=== PATIENT | male | born 1965 | race Caucasian/White ===

== ENCOUNTER 2019-01-06 16:25 | Emergency (ER) | payer OTHER ==
[~2019-01-06] VITALS: Ht 182.9 cm; Wt 107.0 kg
[~2019-01-06 16:25] MED LIST: CLEOCIN HCL300 MG PO; IBUPROFEN 800800 M1 PO; KEFLEX500 MG PO; LISINOPRIL10 MG PO; NORCO 5-325 TA1 EAC1 PO; NORCO 5-325 TA1 EACH PO; PREDNISONE 20 M20 MG PO; PRINZIDE 10-121 EACH; ZESTORETIC 20-1 EAC3 PO
[2019-01-06 16:35] VITALS: BP 182/95
[2019-01-06] MEDS ORDERED: BACTRIM DS TAB1 EACH PO (16:42)
[2019-01-06] MEDS ORDERED: NORVASC 2.5 MG2.5 M1 PO (16:45)
[2019-01-07] MEDS ORDERED: BACTRIM DS TAB1 EACH PO (09:16)
== END 2019-01-06 16:51 | disposition home or self-care (01) ==
LOC: M.ERS 16:25
DX: L53.9 Erythematous condition, unspecified (principal); Z48.00 Encounter for change or removal of nonsurgical wound dressing; I10 Essential (primary) hypertension; M10.9 Gout, unspecified

== ENCOUNTER 2019-07-20 01:06 | Emergency (ER) | payer OTHER ==
[~2019-07-20] VITALS: Ht 182.9 cm; Wt 108.9 kg
[~2019-07-20 01:06] MED LIST changes: +BACTRIM DS TAB1 EACH PO; +NORVASC 2.5 MG2.5 M1 PO
[2019-07-20 01:37] LABS: URINE BILIRUBIN NEGATIVE (Negative); URINE BLOOD 3+ (Negative); URINE CLARITY SL CLOUDY; URINE COLOR YELLOW; URINE GLUCOSE-RANDOM NEGATIVE (Negative); URINE KETONES NEGATIVE (Negative); URINE LEUKOCYTES-REFLEX NEGATIVE (Negative); URINE NITRITE-REFLEX NEGATIVE (Negative); URINE PROTEIN NEGATIVE (Negative); URINE SPECIFIC GRAVITY 1.025 (1.005-1.030); URINE UROBILINOGEN 0.2 E.U./dl (0.2-1.0)
[2019-07-20 01:45] LABS: BACTERIA-REFLEX 1-9 Few /HPF (None Seen); CASTS None Seen /LPF (None Seen); CRYSTALS None Seen /LPF (None Seen); MUCUS None Seen strn/LPF (None Seen); SQUAMOUS 0-3 Few /LPF (0-3); URINE RBC >20 Many /HPF (0-2); URINE WBC-REFLEX None Seen /HPF (0-5)
[2019-07-20 02:59] LABS: ABSOLUTE EOSINOPHILS 0.1 thou/uL (0.0-0.7); ABSOLUTE LYMPHOCYTES 1.7 thou/uL (0.8-5.3); ABSOLUTE MONOCYTES 0.4 thou/uL (0.0-1.2); ABSOLUTE NEUTROPHILS 2.9 thou/uL (1.6-8.1); BASOPHILS 0.3 %; EOSINOPHILS 1.1 %; HEMATOCRIT 41.4 % (42.0-52.0); HEMOGLOBIN 14.6 gm/dL (14.0-18.0); LYMPHOCYTES 33.4 %; MCH 30.1 pg (26.0-34.0); MCHC 35.2 g/dL (28.0-37.0); MCV 85.5 fL (80.0-100.0); MONOCYTES 8.5 %; MPV 8.4 fl. (7.2-11.1); NUCLEATED RBCS 0 /100WBC; PLATELET COUNT* 133 thou/uL (150-400); POLYS 56.7 %; RBC 4.85 mil/uL (4.50-6.00); RDW-CV 13.7 % (10.5-14.5); WBC 5.1 thou/uL (4.0-11.0)
[2019-07-20 03:04] LABS: CALCIUM 8.3 mg/dL (8.5-10.1); CREATININE 1.1 mg/dL (0.6-1.3); POTASSIUM 3.7 mmol/L (3.5-5.1)
[2019-07-20 06:01] VITALS: BP 168/96
== END 2019-07-20 06:02 | disposition home or self-care (01) ==
LOC: M.ERS 01:06
PROVIDERS: Emergency Medicine
DX: R31.9 Hematuria, unspecified (principal); I10 Essential (primary) hypertension; M10.9 Gout, unspecified

== ENCOUNTER 2020-05-11 09:17 | Emergency (ER) | payer OTHER ==
[~2020-05-11] VITALS: Ht 182.9 cm; Wt 108.9 kg
[2020-05-11] MEDS ORDERED: LIPITOR 20 MG T20 M1 PO (09:35)
[2020-05-11] MEDS ORDERED: BACLOFEN 10MG T10 MG PO (09:36)
[2020-05-11] MEDS ORDERED: LEXAPRO 10 MG T10 M2 PO ×2 (09:36→09:38)
[2020-05-11] MEDS ORDERED: ASA81BEC PO (09:36)
[2020-05-11] MEDS ORDERED: PLAVIX 75 MG TA75 MG PO (09:36)
[2020-05-11] MEDS ORDERED: LISINOPRIL20 MG PO ×2 (09:36→09:38)
[2020-05-11 09:56] VITALS: BP 145/62
== END 2020-05-11 09:56 | disposition home or self-care (01) ==
LOC: M.ERS 09:17
DX: I10 Essential (primary) hypertension (principal); Z76.0 Encounter for issue of repeat prescription; Z86.73 Personal history of transient ischemic attack (TIA), and cerebral infarction without residual deficits

== ENCOUNTER 2020-11-07 16:05 | Inpatient (IN) | payer OTHER ==
[~2020-11-07] VITALS: Ht 182.9 cm; Wt 112.3 kg
[~2020-11-07 16:05] MED LIST changes: +ASA81BEC PO; +BACLOFEN 10MG T10 MG PO; +LEXAPRO 10 MG T10 M2 PO; +LIPITOR 20 MG T20 M1 PO; +LISINOPRIL20 MG PO; +PLAVIX 75 MG TA75 MG PO
[2020-11-07 16:08] VITALS: BP 137/82
[2020-11-07] MEDS ORDERED: LISINOPRIL20 MG PO (16:15)
[2020-11-07] MEDS ORDERED: PLAVIX 75 MG TA75 MG PO (16:16)
[2020-11-07] MEDS ORDERED: CHILDREN'S ASPI81 M1 PO (16:16)
[2020-11-07] MEDS ORDERED: DECARA625 MCG PO (16:17)
[2020-11-07] MEDS ORDERED: LIPITOR 40 MG T40 M1 PO (16:17)
[2020-11-07 16:27] LABS: ABSOLUTE EOSINOPHILS 0.1 thou/uL (0.0-0.7); ABSOLUTE LYMPHOCYTES 1.4 thou/uL (0.8-5.3); ABSOLUTE MONOCYTES 0.3 thou/uL (0.0-1.2); ABSOLUTE NEUTROPHILS 3.1 thou/uL (1.6-8.1); BASOPHILS 0.3 %; EOSINOPHILS 1.3 %; HEMATOCRIT 43.1 % (42.0-52.0); HEMOGLOBIN 14.7 gm/dL (14.0-18.0); MCH 29.8 pg (26.0-34.0); MCHC 34.1 g/dL (28.0-37.0); MCV 87.6 fL (80.0-100.0); MONOCYTES 6.5 %; MPV 7.7 fl. (7.2-11.1); NUCLEATED RBCS 0 /100WBC; PLATELET COUNT* 131 thou/uL (150-400); POLYS 63.9 %; RBC 4.92 mil/uL (4.50-6.00); RDW-CV 12.8 % (10.5-14.5); WBC 4.9 thou/uL (4.0-11.0)
[2020-11-07 16:33] LABS: CALCIUM 8.8 mg/dL (8.5-10.1); CREATININE 1.2 mg/dL (0.6-1.3); POTASSIUM 4.3 mmol/L (3.5-5.1)
[2020-11-07 21:27] VITALS: BP 133/76
[2020-11-08 01:23] VITALS: BP 146/77
[2020-11-08 02:01] VITALS: BP 137/32
[2020-11-08 08:10] VITALS: BP 126/74
--- NOTE | 2020-11-08 11:34 | EKG ---
[place] [address] ELECTROCARDIOGRAM REPORT Name: TRACEEABEL R Room: [address] ADM IN .R.#: [id number] Admission: 11/07/20 Attend Phys: Ange Dan, Discharge: Date of : 63 Date of Service: 11/07/20 1720 Report #: [id number] THIS REPORT FOR: //name// [facility] ED Test Date: 2020-11-07 Test Time: 17:20:13 Pat Name: ABEL EASLEY Department: Room: [facility] Gender: M Engraving Operator: SHAJI : 1965 Requested By: Sarah Mccullough Order Number: [id number] MD: Mika Vallejo Measurements Intervals [place] Rate: 70 P: 46 NM: 181 QRS: 4 QRSD: 111 T: 25 QT: 384 QTc: 415 Interpretive Statements Sinus rhythm Abnormal R-wave progression, early transition Compared to ECG 01/07/2012 19:03:25 No significant changes Electronically Signed On 11-08-2020 11:33:46 CDT by Mika Vallejo [email or web address] <ELECTRONICALLY SIGNED> By: Julian Vallejo MD, [facility] 11/08/20 1133 [id number] Julian Vallejo MD, [facility] /EPI
--- NOTE | 2020-11-08 18:41 | NUR ---
PATIENT HAS REMAINED A&OX4, PLEASANT AND COOPERATIVE WITH CARES THIS SHIFT. MEDICATIONS ADMINISTERED ORDERED. PATIENT TO BE NPO AFTER MIDNIGHT TONIGHT FOR SURGERY ON LEFT HIP ON 11/09. PATIENT CURRENTLY ON BEDREST AND Q2T COMPLETED. PATIENT HAS LEFT SIDED PARALYSIS D/T PREVIOUS STROKE AND C/O MUSCLE SPASMS ESPECIALLY IN LLE. PATIENT HAS C/O LLE PAIN, REQUIRING PRN PAIN MEDICATION FREQUENTLY THIS SHIFT. CALL LIGHT AND FREQUENTLY USED ITEMS WITHIN REACH.
[2020-11-08 19:48] VITALS: BP 136/79
[2020-11-08 20:40] VITALS: BP 146/86
--- NOTE | 2020-11-09 06:55 | NUR ---
Alert and oriented x 4. Vitals stable, O2 stable. He had pain med x 3. He has had nothing by mouth since midnight. L side is flaccid from previous CVA.
--- NOTE | 2020-11-09 07:10 | NUR ---
CHANGE OF SHIFT REPORT GIVEN PATIENT SEEN AT BEDSIDE, IN BED RESTING ASSUMED PATIENT CARE
[2020-11-09 08:00] VITALS: BP 140/85
--- NOTE | 2020-11-09 14:30 | NUR ---
patient taken to surgery via bed by pacu nurse at bedside
--- NOTE | 2020-11-09 18:05 | NUR ---
POST OP L HEMIARTHOPLASTY PATIENT BACK TO ROOM VIA BED AWAKE AND ALERT AT BEDSIDE VS-120/75 89% 3L NC 101 14 98.6 ORAL PATIENT DENIES PAIN AT THIS TIME CALL LIGHT IN PLACE
[2020-11-09 20:05] VITALS: BP 126/73
[2020-11-10 04:00] VITALS: BP 123/64
[2020-11-10 04:35] LABS: CALCIUM 8.6 mg/dL (8.5-10.1); CREATININE 1.3 mg/dL (0.6-1.3); POTASSIUM 4.9 mmol/L (3.5-5.1)
[2020-11-10 04:44] LABS: HEMATOCRIT 39.1 % (42.0-52.0); HEMOGLOBIN 13.5 gm/dL (14.0-18.0); MCHC 34.7 g/dL (28.0-37.0); MCV 86.5 fL (80.0-100.0); NUCLEATED RBCS 0 /100WBC; PLATELET COUNT* 146 thou/uL (150-400); RBC 4.52 mil/uL (4.50-6.00); RDW-CV 12.5 % (10.5-14.5)
[2020-11-10 05:21] LABS: ABSOLUTE LYMPHOCYTES 0.8 thou/uL (0.8-5.3); ABSOLUTE MONOCYTES 0.8 thou/uL (0.0-1.2); ABSOLUTE NEUTROPHILS 8.4 thou/uL (1.6-8.1); PLATELET ESTIMATE DECREASED
--- NOTE | 2020-11-10 06:01 | NUR ---
PATIENT HAS REMAINED ALERT AND ORIENTED X 4 THROUGHOUT THE SHIFT AND RESTING QUIETLY ON HOURLY ROUNDS. VITAL SIGNS STABLE OVERNIGHT ON O2 AT 3L/MIN AND CONTINUOUS CAPNOGRAPHY. DRESSING LEFT HIP CLEAN AND DRY. DONG HOSE AND SCD'S ON BILATERAL LOWER EXTREMITIES. ICE PACK TO LEFT HIP AND ORAL PAIN MEDICATION PROVIDED FOR PAIN TO GOOD EFFECT. IVF'S AND MEDS PER ORDER. FAMILY SENT UP DINNER WHICH PATIENT TOLERATED WELL WITHOUT NAUSEA. ADEQUATE VOIDS PER URINAL. REPOSITIONED SEVERAL TIMES FOR COMFORT. FALL PRECAUTIONS IN PLACE. CONTINUE TO MONITOR.
[2020-11-10 08:10] VITALS: BP 119/68
--- NOTE | 2020-11-10 15:55 | NUR ---
Pt is A&O. Resides at home with . Independent. Pt uses a cane for mobility. Hx of HH. Therapies to see today. Recommending ARU, ARU consulted. Plan ARU at [place].
[2020-11-10 16:00] VITALS: BP 115/67
--- NOTE | 2020-11-10 18:55 | NUR ---
NO ACUTE CHANGES THROUGHOUT SHIFT. REFER TO CHARTING. PT WORKED WITH PHYSICAL THERAPY AND UP TO CHAIR FOR MEALS TODAY-TOLERATED FAIR. PRN NORCO GIVEN PER EMAR FOR PAIN. 50%WB LLE. PT TITRATED TO RA SAT MID 90'S. DENIES ANY SHORTNESS OF BREATH. MED SURG STATUS. REHAB CONSULT IN PLACE. AM ASSESSMENT CHARTED. MEDICATIONS PER MAR. HOURLY ROUNDING OBSERVED. BED IN LOW POSITION. CALL LIGHT WITHIN REACH. WILL CONTINUE PLAN OF CARE.
[2020-11-10 19:45] VITALS: BP 116/74
[2020-11-11 04:50] LABS: HEMATOCRIT 35.6 % (42.0-52.0); HEMOGLOBIN 12.4 gm/dL (14.0-18.0); MCH 30.2 pg (26.0-34.0); MCHC 34.8 g/dL (28.0-37.0); MCV 86.8 fL (80.0-100.0); MPV 7.9 fl. (7.2-11.1); RBC 4.1 mil/uL (4.50-6.00); RDW-CV 12.7 % (10.5-14.5); WBC 7.4 thou/uL (4.0-11.0)
--- NOTE | 2020-11-11 04:50 | NUR ---
PT A&O X 4. ON RA. PAIN MANAGED WITH NORCO. PT USES URINAL TO VOID. DRESSING TO LT HIP INTACT. ICE PACKS GIVEN PER PT REQUEST. CALL LIGHT WITHIN REACH. WILL CONTINUE TO MONITOR.
[2020-11-11 05:05] LABS: CALCIUM 8.2 mg/dL (8.5-10.1); POTASSIUM 4.2 mmol/L (3.5-5.1)
[2020-11-11 08:09] VITALS: BP 123/65
--- NOTE | 2020-11-11 08:55 | CON ---
[address] [address] CONSULTATION Name: ABEL EASLEY Room: [address] IN M.R.#: [id number] Admission: 11/07/20 Attend Phys: Ange Dan MD Discharge: Date of : 63 Report #: [id number] THIS REPORT FOR: cc: Carlos Barron MD, Leonard A. MD Greiner, Robert F. II DO ~ DATE OF CONSULTATION: 11/09/2020 ORTHOPEDIC CONSULTATION HISTORY OF PRESENT ILLNESS: The patient is a 55-year-old male who presented to the emergency room with left hip pain following a fall. The patient has had previous stroke, did slip on concrete ____. He does have left-sided upper extremity and lower extremity weakness due to a stroke in last December. Pain is primarily at the level of the greater trochanter, dull, constant, right-sided, 9/10, pain with flexion and extension. There is a small bruise at the point of impact, radiates into the groin and low back. The patient denies any numbness or tingling throughout the lower extremity and we are consulted for further evaluation. MEDICAL PROBLEMS: Previous cellulitis of left leg; femoral neck fracture, left hip; hematuria; insect bite, left leg; and right foot pain. ALLERGIES: No known. MEDICATIONS: Listed in H and P. PAST MEDICAL HISTORY: Hypertension, gout and stroke. PAST SURGICAL HISTORY: None. FAMILY HISTORY: Reviewed and no pertinent family history. SOCIAL HISTORY: The patient denies any tobacco or illicit drug use, does occasionally drink alcohol. REVIEW OF SYSTEMS: The patient had a 12-system review of systems which were negative except for pertinent positives in HPI. PHYSICAL EXAMINATION: GENERAL: The patient is alert, cooperative, oriented, appropriate affect, in mild distress. HEENT: Atraumatic. PERRLA, EOMI. Moist mucous membranes. NECK: Supple, no JVD, no thyromegaly. CARDIOVASCULAR: Regular rate and rhythm. [place] [address] CONSULTATION Name: TRACEEABEL R Room: [address] IN [facility].#: [id number] Admission: 11/07/20 Attend Phys: Ange Dan MD Discharge: Date of : 63 Report #: [id number] LUNGS: Clear to auscultation bilaterally. Normal air movement. ABDOMEN: Soft, normal bowel sounds. No guarding, masses, tenderness or hepatosplenomegaly. SKIN: Warm, dry, normal color, intact. No rashes. EXTREMITIES: The patient does have pain with internal and external rotation of the left lower extremity due to pain in the hip. Normal peripheral pulses. No clubbing, cyanosis or edema. NEUROLOGIC: Normal sensation, although decreased on the left side due to his previous stroke. PSYCHOLOGIC: He is alert and cooperative. LABORATORY STUDIES: Sodium 140, potassium 4.3, chloride 104, carbon dioxide 30, BUN 19 and glucose is 116. White blood cells 4.9, hemoglobin 14.7 and platelet count is 131. X-ray evaluation shows a mildly displaced subcapital midcervical fracture of the left femoral neck. Chest x-ray shows no acute cardiopulmonary process. ASSESSMENT: Hypertension, depression, chronic gout, history of stroke with left-sided weakness and left femoral neck fracture. PLAN: At this time, the patient is discussed risks and benefits, contraindications and indications also of surgery for left hip hemiarthroplasty. He has elected to proceed and all questions were answered. Risks and benefits were discussed. The patient has been discussed possible infection as well as weakness in his leg due to his previous stroke. DVT prophylaxis is discussed, he is on Plavix, I had held this for the last 2 days in order to allow for coagulation to go back to somewhat normal. The patient was discussed close followup as well as precautions afterwards. He elected to proceed. We will proceed with left hip hemiarthroplasty. <ELECTRONICALLY SIGNED> By: Abdirizak Leger II, DO 11/11/20 0855 [id number] Leger II, DO /nt
--- NOTE | 2020-11-11 08:55 | OP ---
[address] [address] OPERATIVE REPORT Name: ABEL EASLEY Room: [address] IN M.R.#: [id number] Admission: 11/07/20 Attend Phys: Ange Dan MD Discharge: Date of : 63 Report #: [id number] THIS REPORT FOR: cc: Carlos Barron MD, Leonard A. MD Greiner, Robert F. II DO ~ DATE OF SURGERY: 11/09/2020 PREOPERATIVE DIAGNOSIS: Left hip subcapital hip fracture. POSTOPERATIVE DIAGNOSIS: Left hip subcapital hip fracture. PROCEDURE: Left fela-hip arthroplasty. SURGEON: Abdirizak Leger II, DO REGULATORY AUDITOR: AXEL Portillo ANESTHESIA: General endotracheal. ESTIMATED BLOOD LOSS: 200 mL ANTIBIOTICS: Ancef preoperatively. DRAINS: None. COMPLICATIONS: None. CONDITION: The patient stable to recovery room. IMPLANTS: Pang and Nephew hemiarthroplasty bipolar set. BRIEF HISTORY: The patient was previously seen for a fall. He did have Plavix on board and this was held for 2 days to allow his coagulation return to near normal. Risks and benefits were discussed with the patient about surgery. The patient wished to proceed assuming all risks. DESCRIPTION OF PROCEDURE: The patient was taken to the operative suite, placed supine on the operating table, given appropriate anesthesia. The patient was then placed in the lateral position with the left hip facing superiorly. The hip was sterilely prepped and draped. Surgery began by anterolateral incision over the left hip, carried down to subcutaneous tissues. The tensor fascia was then split along its fibers and retracted utilizing the Charnley retractor. The gluteus medius and minimus were reflected off of the femur to expose the capsule. A T-capsulotomy was then performed to allow exposure to the head and neck. Appropriate neck cut was made utilizing the broach [id number] OPERATIVE REPORT Name: ABEL EASLEY Genny Room: [address] IN [facility]#: [id number] Admission: 11/07/20 Attend Phys: Ange Dan MD Discharge: Date of : 63 Report #: [id number] neck was removed in small pieces. The head was then removed utilizing a corkscrew to remove the head from the socket. This was measured to appropriate size. Appropriate trial was then performed showing excellent fit and excellent stability of the head within the socket. Attention was then turned to the femur that was broached in sequential fashion up to appropriate size. This broach was then left in place with appropriate neck, which was trialed and should have excellent flexion and extension. Excellent stability of the hip through all range of motion, no evidence of dislocation. The finals were then malleted into position and reduced in appropriate fashion. Irrigation then performed of the wound. The T-capsulotomy was then closed utilizing a #1 Vicryl in urxpbj-[id number]-ljxxd fashion. The gluteus medius and minimus were reapproximated to the femur with bone seeking bites of #5 FiberWire in a lceugu-je-jnolc fashion to sew this back onto the bone and then oversewn with #1 Vicryl. The tensor was reapproximated and repaired utilizing #1 Vicryl in a running fashion. Skin was closed with #1 Vicryl, 2-0 Vicryl and a running Monocryl stitch. Dermabond as well as a sterile Mepilex dressing was applied. The patient was transported to the recovery room in stable condition. Counts were correct throughout the procedure. <ELECTRONICALLY SIGNED> By: Abdirizak Leger II, DO 11/11/20 0855 [id number] 1954Rmarielle Leger II, DO /nt
--- NOTE | 2020-11-11 14:58 | NUR ---
Pt medically stable to dc once insurance auth is received from the [place], plan dc to ARU
[2020-11-11] MEDS ORDERED: OXYCODONE HCL5 M1 PO (15:52)
[2020-11-11] MEDS ORDERED: AMBIEN 5 MG TABL5 M1 PO (15:55)
[2020-11-11] MEDS ORDERED: COLACE100 MG PO (15:57)
[2020-11-11] MEDS ORDERED: PEPCID20 MG PO (15:58)
[2020-11-11 16:00] VITALS: BP 122/73
[2020-11-11] MEDS ORDERED: ASPERCREME1 EACH TOP (16:00)
--- NOTE | 2020-11-11 19:35 | NUR ---
PT A/OX4, PLEASANT AND COOPERATIVE, HR NSR ON TELE, ROOM AIR, GIVEN PRN NORCO X2 FOR LEFT HIP PAIN. PATIENT ALSO USING ICE PACKS ON LEFT TO HELP WITH PAIN. ADEQUATE OUTPUT, NO BM, PRN MOM GIVEN ORDERED.
[2020-11-11 20:04] VITALS: BP 131/72
[2020-11-12] VITALS: BP 123/54
[2020-11-12 04:00] VITALS: BP 132/77
--- NOTE | 2020-11-12 05:52 | NUR ---
PT IS ABLE TO COMMUNICATE HIS NEEDS TO STAFF EFFECTIVELY. CURRENT PAIN MEDICATION REGIMEN HAS BEEN ADEQUATE FOR CONTROLLING HIS PAIN UP TO THIS TIME. PT HAS CONTRACTED LIMBS ON LT SIDE AND SPASTICITY WELL; TAKES BACLOFEN, BUT SAYS IT IS NOT ENOUGH. MED/SURG STATUS.
[2020-11-12 07:45] VITALS: BP 132/82
--- NOTE | 2020-11-12 12:52 | NUR ---
Pt medically stable to dc pending insurance auth for ARU
[2020-11-12 16:00] VITALS: BP 128/79
--- NOTE | 2020-11-12 19:19 | NUR ---
PT IS ALERT AND ORIENTED X4, ON ROOM AIR, GIVEN PRN NORCOX2 THIS SHIFT ORDERED. PT WORKED WITH THERAPY AND GOT UP TO HIS CHAIR WITH ONE ASSIST AND A GAIT BELT. PT HAS ADEQUATE URINE OUTPUT, HAS NOT HAD A BM SINCE 11/10 GIVEN PRN MOM AND METAMUCIL WELL PRUNE JUICE.
[2020-11-12 20:00] VITALS: BP 127/85
[2020-11-13] VITALS: BP 155/77
--- NOTE | 2020-11-13 09:18 | NUR ---
Insurance auth received, Pt to dc to ARU this am.
--- NOTE | 2020-11-13 15:36 | NUR ---
1220-PT GIVEN DC INSTRUCTIONS AND NEW MED INFO SHEETS. TECH DCD IV. AND ASSISTED PT TO GET ALL ITEMS PACKED. PT TAKEN TO REHAB VIA BED.
== END 2020-11-13 12:51 | DRG 522 ==
LOC: M.ERS → M.2W 17:27 → M.TBA-ER 17:27 → M.2W 11-08 01:18
PROVIDERS: Emergency Medicine Emergency Medical Services; Internal Medicine; ADMIT Internal Medicine; ATTEND Internal Medicine
DX: S72.012A Unspecified intracapsular fracture of left femur, initial encounter for closed fracture (principal); I69.354 Hemiplegia and hemiparesis following cerebral infarction affecting left non-dominant side; M10.9 Gout, unspecified; G89.29 Other chronic pain; F32.9 Major depressive disorder, single episode, unspecified; F41.9 Anxiety disorder, unspecified; I12.9 Hypertensive chronic kidney disease with stage 1 through stage 4 chronic kidney disease, or unspecified chronic kidney disease; N18.2 Chronic kidney disease, stage 2 (mild); I25.10 Atherosclerotic heart disease of native coronary artery without angina pectoris; W18.39XA Other fall on same level, initial encounter; Z20.822 Contact with and (suspected) exposure to COVID-19; Y93.89 Activity, other specified; Z79.82 Long term (current) use of aspirin; Z79.01 Long term (current) use of anticoagulants; Z79.899 Other long term (current) drug therapy; Y92.89 Other specified places as the place of occurrence of the external cause; Y99.8 Other external cause status

== ENCOUNTER 2020-11-13 10:00 | Inpatient (IN) | payer OTHER ==
[~2020-11-13] VITALS: Ht 182.9 cm; Wt 118.1 kg
[~2020-11-13 10:00] MED LIST changes: +AMBIEN 5 MG TABL5 M1 PO; +ASPERCREME1 EACH TOP; +CHILDREN'S ASPI81 M1 PO; +COLACE100 MG PO; +DECARA625 MCG PO; +LIPITOR 40 MG T40 M1 PO; +OXYCODONE HCL5 M1 PO; +PEPCID20 MG PO
[2020-11-13 13:00] VITALS: BP 142/79
--- NOTE | 2020-11-13 18:14 | NUR ---
55 YEAR OLD MALE PATIENT ADMITTED TO ROOM 324 S/P LEFT HIP ORIF. PT IS A/OX4, PLEASANT AND COOPERATIVE. ADMISSION PROCESS COMPLETED. PT ORIENTED TO ROOM, BED CONTROLS AND CALL LIGHT. FALL PRECAUTIONS AND HOURLY ROUNDING INITIATED.
--- NOTE | 2020-11-13 20:10 | NUR ---
RESTING QUIETLY IN BED AND WATCHING TV. VERY PLEASANT. VOIDS YELLOW URINE PER URINAL WHICH IS WITHIN REACH. CALL LIGHT WITHIN REACH. EXPRESSED CONCERN OVER HIS BACLOFEN BEING ORDERED ONLY DAILY. WILL FOLLOW UP.
[2020-11-13 20:19] VITALS: BP 135/77
[2020-11-14 04:05] LABS: HEMATOCRIT 39.9 % (42.0-52.0); HEMOGLOBIN 13.6 gm/dL (14.0-18.0); MCH 29.6 pg (26.0-34.0); MCHC 34.2 g/dL (28.0-37.0); MCV 86.5 fL (80.0-100.0); RBC 4.61 mil/uL (4.50-6.00); RDW-CV 12.7 % (10.5-14.5); WBC 7.6 thou/uL (4.0-11.0)
[2020-11-14 04:22] LABS: CALCIUM 9.1 mg/dL (8.5-10.1); POTASSIUM 4.7 mmol/L (3.5-5.1)
--- NOTE | 2020-11-14 05:31 | NUR ---
RESTED ON/OFF. PAIN MEDICINE GIVEN X 2 FOR LEFT HIP PAIN. LEFT HIP DRESSING DRY/INTACT. USED THE URINAL DURING THE NIGHT. DECLINES ASSIST WITH REPOSITIONING TO THE SIDE. PREFERS TO SLEEP IN SEMI-FOWLERS. HOURLY ROUNDING IN PROGRESS.
[2020-11-14 08:00] VITALS: BP 108/64
--- NOTE | 2020-11-14 13:45 | NUR ---
Nutrition: Pt admitted to rehab with Lt hip FX. He said he usually weighs 238# and has had no recent wt changes. He is eating well on regular diet. He was finishing lunch during our visit. H/o gout, HTN, CVA. No albumin recorded. Pt had no nutrition questions at this time. Low risk.
--- NOTE | 2020-11-14 17:26 | NUR ---
ALERT AND ORIENTED X4. UP WITH 2 ASSIST, GAIT BELT AND WALKER. REMAINS 50% WEIGHT BEARING TO LEFT LOWER LEG. DRESSING DRY AND INTACT OVER LEFT HIP INCISION. PO PAIN MEDICATION CHANGED TO HELP WITH LEFT HIP PAIN. TAKES PILLS WITHOUT DIFFICULTY. CONTINENT OF BOWEL AND BLADDER. USES CALL LIGHT FOR ASSIST. FALL PRECAUTIONS IN PLACE. BED ALARM AND CHAIR ALARM USED.
--- NOTE | 2020-11-14 17:31 | NUR ---
CM COMPLETED ARU ASSESSEMENT. CM SPK WITH PT , LAXMI. LAXMI INDICATED SINCE PT'S STROKE, HE HAS NEEDED "SOME" ASSISTANCE WITH ADLS. PT HAS CANE, WALER AND W/C HE USES. 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 LAXMI INDICATED PT HAS HX WITH [facility]. PT USE TO GO TO OUTPT OT, BUT LAXMI WANTS HH WITH [facility] AT DC SHE IS "HOMESCHOOLING" SO SHE CANT TAKE PT TO THERAPY. PT HAS 6 STAIRS INTO HOME AND 6 STAIRS UP TO BEDROOM AND LIVING AREA. CM TO CONT TO FOLLOW.
[2020-11-14 20:22] VITALS: BP 137/79
[2020-11-15 07:51] VITALS: BP 113/67
[2020-11-15 20:18] VITALS: BP 147/72
--- NOTE | 2020-11-16 04:25 | NUR ---
ASSUMED PT CARE AT 1930. PT ALERT AND ORIENTED X4, POLITE AND COOPERATIVE WITH CARES. PT IN BED AT SHIFT CHANGE. 50% WB TO LLE. RESIDUAL LEFT SIDE WEAKNESS FROM CVA IN 2020. DRESSING TO LEFT HIP INCISION DRY AND INTACT. PRN PAIN MEDICATION AT PT REQUEST. VOIDED PER URINAL. CALL LIGHT IN REACH, BED ALARM ON FOR SAFETY. HOURLY ROUNDING IN PROGRESS, WILL CONTINUE TO MONITOR.
[2020-11-16 07:47] VITALS: BP 105/75
[2020-11-16 20:17] VITALS: BP 141/78
--- NOTE | 2020-11-17 05:11 | NUR ---
ASSUMED PT CARE AT 1930. PT ALERT AND ORIENTED X4, POLITE AND COOPERATIVE WITH CARES. PT IN BED AT SHIFT CHANGE. 50% WB TO LLE. RESIDUAL LEFT SIDE WEAKNESS FROM CVA IN 2020. DRESSING TO LEFT HIP INCISION DRY AND INTACT. PRN PAIN MEDICATION AT PT REQUEST. VOIDED PER URINAL. CALL LIGHT IN REACH, BED ALARM ON FOR SAFETY. HOURLY ROUNDING IN PROGRESS, WILL CONTINE TO MONITOR.
[2020-11-17 08:00] VITALS: BP 112/62
[2020-11-17 19:00] VITALS: BP 141/74
--- NOTE | 2020-11-18 04:57 | NUR ---
ASSUMED PT CARE AT 1930. PT ALERT AND ORIENTED X4, POLITE AND COOPERATIVE WITH CARES. PT IN BED AT SHIFT CHANGE. 50% WB TO LLE, PT FRACTURED LEFT HIP IN FALL. RESIDUAL LEFT SIDE WEAKNESSS FORM CVA IN 2019. DRESSING TO LEFT HIP DRY AND INTACT. PRN PAIN MEDICATION TWICE THIS SHIFT FOR HIP PAIN. VOIDED PER URINAL NO STOOL THIS SHIFT. CALL LIGHT IN REACH, BED ALARM ON FOR SAFETY. HOURLY ROUNDING IN PROGRESS, WILL CONTINUE TO MONITOR.
[2020-11-18 07:30] VITALS: BP 142/76
--- NOTE | 2020-11-18 14:51 | NUR ---
CM ASSESSED PT AND HIS , LAXMI RE QUESTIONS/CONCERNS FOR TEAM CONFERENCE: PT INDICATED HE WOULD LIKE TO BE ABLE TO NAVIGATE STAIRS, HE HAS 6 TO ENTER HOME AND 6 INSIDE OF HOME TO BR. LAXMI WANTS PT TO BE ABLE TO "STEP IN CONVERSION VAN" THIS IS FAMILY'S ONLY VEHICLE. CM EDU PT ON TEAM CONFERENCES AND ALSO EXPLAINED ALTHOUGH IT IS ARU'S GOAL TO HELP PT REACH THEIR FULL POTENTIAL THAT AFTER STROKE SOMETIMES INDIVIDUALS MAY NOT HAVE THE SAME PHYSICAL CAPACITY THEY ONCE HAD. LAXMI EXPRESSED UNDERSTANDING.
--- NOTE | 2020-11-18 18:21 | NUR ---
PATIENT COMPLETED THERAPIES THIS SHIFT ORDERED. UP WITH ASSISTANCE, GAIT BELT AND WALKER. REMAINS 50% WB TO LEFT HIP, DRESSING INTACT. LIDOCAINE PATCH TO LEFT THIGH ORDERED, PRN VICODIN GIVEN X [address] AMES'S ORDERS PATIENT BACLOFEN INCREASED TO 20MG QID. VOIDING PER URINAL, NO BM NOTED THIS SHIFT. AM LABS AND TEAM MEETING TOMORROW.
[2020-11-18 19:00] VITALS: BP 122/77
--- NOTE | 2020-11-18 19:55 | NUR ---
PAIN MEDICINE GIVEN FOR COMPLAINT OF LEFT LEG PAIN. CALL LIGHT AND URINAL WITHIN REACH. RESTING QUIETLY IN BED.
[2020-11-19 04:37] LABS: HEMATOCRIT 37.1 % (42.0-52.0); HEMOGLOBIN 12.5 gm/dL (14.0-18.0); MCH 29.3 pg (26.0-34.0); MCHC 33.6 g/dL (28.0-37.0); MCV 87.2 fL (80.0-100.0); MPV 7.1 fl. (7.2-11.1); RBC 4.26 mil/uL (4.50-6.00); RDW-CV 12.5 % (10.5-14.5); WBC 8.5 thou/uL (4.0-11.0)
--- NOTE | 2020-11-19 04:51 | NUR ---
RESTED ON/OFF. PATIENT STATES SLEEPS IN SHORT INTERVALS. LAST GIVEN PAIN MEDICINE AT 0424 FOR COMPLAINT OF MUSCLE SPASMS IN LEFT LEG. PATIENT IS ON SCHEDULED BACLOFEN. USED URINAL DURING THE NIGHT. HOURLY ROUNDING IN PROGRESS.
[2020-11-19 05:03] LABS: CALCIUM 9.4 mg/dL (8.5-10.1); CREATININE 1.1 mg/dL (0.6-1.3); POTASSIUM 4.4 mmol/L (3.5-5.1)
[2020-11-19 07:40] VITALS: BP 115/59
--- NOTE | 2020-11-19 15:59 | NUR ---
Case and plan of care reviewed with MD each weekday during patient's length of stay. Continue plan of care per MD orders for current dx. Physical deficients/barriers to discharge discussed. pt and concern shared for pts ability to enter and exit home which is split level with 10-12 stairs and his ability to get into conversion van. At this time it is felt he is not able to do this. Rounded with Dr Aquino and pt is in agreement with continue plan of care. CM discussed chair lift for stairs and pt is in agreement to explore this need. Will check with [facility] if assistance of any type available through them.
--- NOTE | 2020-11-19 16:40 | NUR ---
PATIENT COMPLETED THERAPIES THIS SHIFT ORDERED. UP WITH ASSISTANCE, GAIT BELT AND WALKER. REMAINS 50% WB TO LEFT LOWER EXTREMITY. PRN VICODIN GIVEN X 1 FOR PAIN. BACLOFEN CONT AT 20MG QID. LIDOCAIN PATCH IN PLACE TO LEFT GROIN PER PATIENT REQUEST. VOIDING PER URINAL, LARGE BM NOTED THIS SHIFT. TEAM EETING TODAY, PATIENT RETEAM.
[2020-11-19 20:09] VITALS: BP 160/89
--- NOTE | 2020-11-20 01:17 | NUR ---
ASSUMED CARE AT 1930. PATIENT RESTING IN BED. TURNS SELF. VOIDS PER URINAL. TAKES PILLS WHOLE WITH WATER. DRESSING C/D/I. 50% WB TO LLE MAINTAINED. MEDICATED FOR PAIN, SEE MAR. ASSISTED WITH TURNS. HOURLY ROUNDS CONTINUE. BED ALARM ON. CALL LITE IN REACH.
--- NOTE | 2020-11-20 05:49 | NUR ---
SLEPT OFF AND ON. MEDICATED FOR PAIN. SEE MAY. VOIDS PER URINAL, TURNS SELF. HOURLY ROUNDS CONTINUE. BED ALARM ON. CALL LITE IN REACH.
[2020-11-20 08:00] VITALS: BP 128/72
--- NOTE | 2020-11-20 17:28 | NUR ---
AM ASSESSMENT AND VITAL SIGNS COMPLETED DOCUMENTED. PT CONTINUES TO PROGRESS WITH THERAPIES. PT IS MIN ASSIST WITH TRANSFERS AND TOILETING. PRN TYLENOL AND HYDROCODONE GIVEN ALONG WITH SCHEDULED BACLOFEN. FALL PRECAUTIONS AND HOURLY ROUNDING CONTINUE.
[2020-11-20 20:00] VITALS: BP 139/73
--- NOTE | 2020-11-21 04:47 | NUR ---
PATIENT AWAKE OFF AND ON DURING THE NIGHT REQUESTING THINGS ON HIS CALL LIGHT. PT WITH LT SIDED WEAKNESS EXPECIALLY IN LT ARM. PT VOIDS YELLOW URINE PER URINAL. PT ABLE TO REPOSITION HIMSELF IN BED. PT IS ON MULUGETA, AIR AND VITALS WNL. PT GIVEN HYDROCODONE 2TABLETS X2 DURING THIS SHIFT. FREQUENTLY USED ITEMS AND CALL LIGHT WITHIN REACH. SIDERAILS UPX2 AND BED ALARM ON. WILL CONTINUE TO MONITOR.
[2020-11-21 08:00] VITALS: BP 122/66
--- NOTE | 2020-11-21 13:46 | NUR ---
AM ASSESSMENT AND VITAL SIGNS COMPLETED DOCUMENTED. PT HAS C/O MUSCLE SPASMS IN HIS LEFT THIGH AND GROIN, NEW ORDER FOR MAGNESIUM AND FLEXERIL REC'D. PT IS DOING WELL WITH THERAPY. FALLPRECAUTIONS AND HOURLY ROUNDING CONTINUE.
[2020-11-21 20:13] VITALS: BP 156/80
--- NOTE | 2020-11-22 03:20 | NUR ---
ASSUMED CARE AT 1930. PATIENT RESTING IN BED. TURNS SELF. VOIDS PER URINAL. TAKES PILLS WHOLE WITH WATER. DRESSING C/D/I. 50% WB TO LLE MAINTAINED. MEDICATED FOR PAIN, SEE MAR. PATIENT AWARE OF NEW MEDS STARTING TONIGHT, SEE MAR. ASSISTED WITH TURNS. HOURLY ROUNDS CONTINUE. BED ALARM ON. CALL LITE IN REACH.
--- NOTE | 2020-11-22 06:29 | NUR ---
RESTED IN BED ALL SHIFT. MEDICATED FOR PAIN, SEE MAR. VOIDED PER URINAL. TURNS SELF. HOURLY ROUNDS CONTINUE. BED ALARM ON. CALL LITE IN REACH.
[2020-11-22 08:00] VITALS: BP 122/72
--- NOTE | 2020-11-22 16:53 | NUR ---
ALERT AND ORIENTED X4. UP WITH 1 ASSIST, GAIT BELT AND PLATFORM WALKER. PO PAIN MEDICATION HELPFUL WITH LEG PAIN. TAKES PILLS WITHOUT DIFFICULTY. DRESSING REMAINS DRY AND INTACT OVER LEFT HIP INCISION. HAS LEFT SIDED WEAKNESS FROM PRIOR CVA. USES CALL LIGHT FOR ASSIST. FALL PRECAUTIONS IN PLACE, BED ALARM AND CHAIR ALARM USED.
[2020-11-22 19:00] VITALS: BP 136/78
--- NOTE | 2020-11-23 05:32 | NUR ---
PATIENT SLEP WELL DURING THIS SHIFT. PT ON FLEXERIL FOR LEG SPASMS. PT SAID SPASMS ARE BETTER SINCE STARTING ON FLEXERIL. PT VOIDS YELLOW URINE PER URINAL. 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 PT GIVEN HYDRDOCODONE 2 TABS X1 AT HS FOR PAIN. BACLOFEN GIVEN ORDERED. FREQUENTLY USED ITEMS AND CALL LIGHT WITHIN REACH. SIDERAILS UPX3 AND BED ALARM ON. WILL CONTINUE TO MONITOR.
[2020-11-23 07:50] VITALS: BP 131/63
--- NOTE | 2020-11-23 16:52 | NUR ---
ALERT AND ORIENTED X4. UP WITH 1 ASSIST, GAIT BELT AND PLATFORM WALKER. USES PO PAIN MEDICATION TO HELP WITH LEFT LEG PAIN. REMAINS 50% WEIGHTBEARING TO LEFT LEG. HAS LEFT SIDED WEAKNESS FROM PRIOR CVA. DRY DRESSING OVER LEFT HIP INCISION. TAKES PILLS WITHOUT DIFFICULTY. CONTINENT OF BOWEL AND BLADDER. USES CALL LIGHT FOR ASSIST. FALL PRECAUTIONS IN PLACE.
[2020-11-23 20:00] VITALS: BP 137/79
--- NOTE | 2020-11-24 06:02 | NUR ---
PATIENT SLEPT WELL DURING THIS SHIFT. PT ABLE TO REPOSITION HIMSELF IN BED. PT GIVEN ONE HYDROCODONE AT HS. PT SAYS BACLOFEN HELPS WITH LEG SPASMS. PT WITH DSG ON LT HIP. PT IS UP WITH WALKER, GAIT BELT AND STANDBY ASSIST. FREQUENTY USED ITEMS AND CALL LIGHT WITHIN REACH. SIDERAILS UPX2 AND BED ALARM ON. WILL CONTINUE TO MONITOR.
[2020-11-24 08:00] VITALS: BP 121/69
--- NOTE | 2020-11-24 17:01 | NUR ---
ALERT AND ORIENTED X4. UP WITH 1 ASSIST, GAIT BELT AND PLATFORM WALKER. USES PO PAIN MEDICATION TO HELP WITH LEFT HIP PAIN. DRESSING REMAINS DRY AND INTACT. ORTHO DR CALLED AND SAID HE WILL SEE PATIENT TOMORROW. XRAY DONE ORDERED. REMAINS 50% WEIGHTBEARING TO LEFT LEG. USES CALL LIGHT FOR ASSIST. FALL PRECAUTIONS IN PLACE. TAKES PILLS WITHOUT DIFFICULTY.
[2020-11-24 20:00] VITALS: BP 155/83
--- NOTE | 2020-11-25 04:27 | NUR ---
ASSUMED PT CARE AT 1930. PT ALERT AND ORIENTED X4, POLITE AND COOPERATIVE WITH CARES. ONE HYDROCODONE AT HS FOR LEFT HIP PAIN. LEFT SIDE WEAKNESS FROM PREVIOUS CVA. DRESSING TO LEFT HIP INCISION DRY AND INTACT. ORTHO TO ROUND ON PT TODAY. VOIDS PER URINAL. NO ST0OL THIS SHIFT. CALL LIGHT IN REACH, BED ALARM ON FOR SAFETY. HOURLY ROUNDING IN PROGRESS, WILL CONTINUE TO MONITOR.
[2020-11-25 07:50] VITALS: BP 131/81
--- NOTE | 2020-11-25 17:06 | NUR ---
PATIENT COMPLETED THERAPIES THIS SHIFT ORDERED. UP WITH ASSISTANCE, GAIT BELT AND WALKER. PRN HYDROCODONE GIVEN X [address] PA[address]. BENZ HERE THIS AFTERNOON TO ASSESS LEFT HIP, NOTIFIED OF XRAY RESULTS. ORDERS WERE RECEIVED AT THIS TIME FOR ICE PACK TO LEFT HIP AND PATIENT COULD BE WBAT TO LEFT EXTREMITY. DRESSING DC'D AND JONNY. PATIENT NOTIFIED AND OF PLAN OF CARE WELL REHAB LIASON, PT AND OT. LABS ORDERED FOR AM AND TEAM MEETING TOMORROW.
[2020-11-25 19:00] VITALS: BP 142/82
--- NOTE | 2020-11-26 05:02 | NUR ---
ASSUMED PT CARE AT 1930. PT ALERT AND ORIENTED X4, POLITE AND COOPERATIVE WITH CARES. PT NOW WBAT TO LEFT LEG. SURGICAL SITE ON LEFT HIP JONNY. NO PRN PAIN MEDICATIONS THIS SHIFT. PT VOIDED PER URINAL SEVERAL TIMES OVERNIGHT. SLEPT WELL. CALL LIGHT IN REACH, BED ALARM ON FOR SAFETY. HOURLY ROUNDING IN PROGRESS, WILL CONTINUE TO MONITOR.
[2020-11-26 05:27] LABS: HEMATOCRIT 40.5 % (42.0-52.0); HEMOGLOBIN 13.5 gm/dL (14.0-18.0); MCH 29.3 pg (26.0-34.0); MCHC 33.3 g/dL (28.0-37.0); MPV 7.5 fl. (7.2-11.1); RBC 4.61 mil/uL (4.50-6.00); RDW-CV 12.8 % (10.5-14.5); WBC 7.5 thou/uL (4.0-11.0)
[2020-11-26 06:19] LABS: CALCIUM 9.3 mg/dL (8.5-10.1); POTASSIUM 4.6 mmol/L (3.5-5.1)
[2020-11-26 09:29] VITALS: BP 115/73
--- NOTE | 2020-11-26 15:14 | NUR ---
PT IS UP WITH GAIT BELT AND WALKER. PT COMPLETED ALL THERAPY . NO COMPLAINTS OF PAIN. PT IS W/B TOLERATED ON LT SIDE. PT IS RESTING WITH CALL LIGHT IN REACH AND FALL PRECAUTIONS IN PLACE.
--- NOTE | 2020-11-26 18:19 | NUR ---
Case and plan of care reviewed with MD each week during patient's length of stay. Continue plan of care per MD orders for current dx. Progress reported and plan is to reteam next week. Spoke to , Cortes [phone] and pt prior to team meeting,no concerns voiced by pt. remains concerned about getting into Van and up/down stairs at home. Discussed chair lift possibility and that pt felt good idea to explore last week. thought pt has contact his [facility] CM about this, CM will follow up with [facility] about this also. Rounded with Dr Escalona after team meeting.
[2020-11-26 19:00] VITALS: BP 156/86
--- NOTE | 2020-11-27 04:50 | NUR ---
ASSUMED PT CARE AT 1930. PT ALERT AND ORIENTED X4, POLITE AND COOPERATIVE WITH CARES. WBAT TO LEFT LEG. SURGICAL SITE ON LEFT HIP JONNY. PRN HYDROCODONE ONCE THIS SHIFT FOR HIP PAIN. VOIDED PER URINAL SEVERAL TIMES OVERNIGHT. SLEPT WELL. CALL LIGHT IN REACH, BED ALARM ON FOR SAFETY. HOURLY ROUNDING IN PROGRESS, WILL CONTINUE TO MONITOR.
[2020-11-27 05:02] LABS: HEMATOCRIT 38.6 % (42.0-52.0); HEMOGLOBIN 12.8 gm/dL (14.0-18.0); MCH 29.1 pg (26.0-34.0); MCHC 33.2 g/dL (28.0-37.0); MCV 87.6 fL (80.0-100.0); MPV 6.9 fl. (7.2-11.1); RBC 4.41 mil/uL (4.50-6.00); RDW-CV 12.7 % (10.5-14.5); WBC 6.8 thou/uL (4.0-11.0)
[2020-11-27 05:17] LABS: ALBUMIN 3.5 g/dL (3.4-5.0); CALCIUM 9.3 mg/dL (8.5-10.1); CREATININE 1.1 mg/dL (0.6-1.3); MAGNESIUM 2.2 mg/dL (1.8-2.4); POTASSIUM 4.5 mmol/L (3.5-5.1); TOTAL BILIRUBIN 0.6 mg/dL (<0.1-1.0); TOTAL PROTEIN 7.3 g/dL (6.4-8.2)
[2020-11-27 07:22] VITALS: BP 118/62
--- NOTE | 2020-11-27 15:23 | NUR ---
PT UP WITH GAIT BELT AND WALKER. PT COMPLETED ALL THERAPY. PT DID COMPLAIN OF PAIN AT 10 AM RESOLVED WITH MED. PT IS RESTING WITH CALL LIGHT IN REACH AND FALL PRECAUTIONS IN PLACE.
[2020-11-27 20:10] VITALS: BP 137/80
--- NOTE | 2020-11-28 05:22 | NUR ---
ASSUMED PT CARE AT 1930. PT ALERT AND ORIENTED X4, POLITE AND COOPERATIVE WITH CARES. WBAT TO LEFT LEG. SUGICAL SITE ON LEFT HIP TIMERS INSPECTOR. PRN HYDOCODONE ONCE THIS SHIFT FOR HIP PAIN. VOIDED PER URINAL SEVERAL TIMES OVERNIGHT. C/O LEFT LEG SPASMS. CALL LIGHT IN REACH, BED ALARM ON FOR SAFETY. HOURLY ROUNDING IN PROGRESS, WILL CONTINUE TO MONITOR.
[2020-11-28 08:05] VITALS: BP 131/81
--- NOTE | 2020-11-28 16:31 | NUR ---
PLAN FOR THE PT TO POSSIBLY D/C NEXT WEEK AFTER TEAM. PT PROGRESSING WELL TOWARDS GOALS. CM WILL REMAIN AVAILABLE TO ASSIST AND FOLLOW NEEDED.
--- NOTE | 2020-11-28 17:18 | NUR ---
AM ASSESSMENT AND VITAL SIGNS COMPLETED DOCUMENTED. PT'S HIP INCISION IS WELL HEALED. PT IS COOPERATIVE AND PLEASANT, MOTIVATED DURING THERAPY. FALL PRECAUTIONS AND HOURLY ROUNDING CONTINUES.
[2020-11-28 20:13] VITALS: BP 126/79
--- NOTE | 2020-11-29 06:20 | NUR ---
PATIENT SLEPT WELL DURING THIS SHIFT. PT REQUESTED PAIN MEDICATION X1 AT HS AND RECEIVED TWO HYDROCODONE. PT VOIDS YELLOW URINE PER URINAL. PT ABLE TO REPOSITON HIMSELF IN BED AND ALSO WITH ASSIST. PT IS ON ROOM AIR. FREQUENTLY USED ITEMS AND CALL LIGHT WITHIN REACH. SIDERAILS UPX3 AND BED ALARM ON. WILL CONTINUE TO MONITOR.
[2020-11-29 08:00] VITALS: BP 122/68
--- NOTE | 2020-11-29 15:51 | NUR ---
PT UP WITH GAIT BELT AND WALKER. PT HAD NO COMPLAINTS OF PAIN. PT IS ON RM AIR PT IS RESTING WITH CALL LIGHT IN REACH AND FALL PRECAUTION IN PLACE.
[2020-11-29 20:09] VITALS: BP 138/75
--- NOTE | 2020-11-29 20:10 | NUR ---
RESTING QUIETLY IN BED AND WATCHING TV. CALL LIGHT WITHIN REACH. DENIES DISCOMFORT.
--- NOTE | 2020-11-30 05:46 | NUR ---
GIVEN HYDROCODONE AT 2251 FOR COMPLAINT OF LEFT HIP PAIN WITH RELIEF. USED URINAL DURING THE NIGHT. HOURLY ROUNDING IN PROGRESS.
[2020-11-30 07:59] VITALS: BP 131/63
--- NOTE | 2020-11-30 14:33 | NUR ---
PT UP WITH GAIT BELT AND WALKER. PT HAS NO COMPLAINTS OF PAIN. PT IN SITTING IN CHAIR WATCHING TV WITH CALL LIGHT IN REACH AND FALL PRECAUTIONS IN PLACE.
[2020-11-30 19:20] VITALS: BP 142/82
--- NOTE | 2020-11-30 19:20 | NUR ---
RESTING QUIETLY IN BED AND WATCHING TV. CALL LIGHT AND URINAL WITHIN REACH. VOIDS YELLOW URINE PER URINAL.
--- NOTE | 2020-12-01 05:42 | NUR ---
GAVE PAIN MEDICATION AT 0040 WITH GOOD RESULTS. USED URINAL DURING THE NIGHT. HOURLY ROUNDING IN PROGRESS.
[2020-12-01 07:46] VITALS: BP 126/79
--- NOTE | 2020-12-01 16:31 | NUR ---
PT UP TODAY WITH GAIT BELT AND WALKER. PT COMPLETED ALL THERAPY. NO COMPLAINTS OF PAIN. PT RESTING WITH CALL LIGHT IN REACH AND FALL PRECAUTIONS IN PLACE.
[2020-12-01 20:00] VITALS: BP 142/86
--- NOTE | 2020-12-02 04:23 | NUR ---
ASSUMED PT CARE AT 1930. PT ALERT AND ORIENTED X4, POLITE AND COOPERATIVE WITH CARES. TWO HYDROCODONE WITH EVENING MEDS PER PT REQUEST. PT USED URINAL SEVERAL TIMES OVERNIGHT TO VOID. PT TO BED LATE, THEN SLEPT WELL. CALL LIGHT IN REACH, BED ALARM ON FOR SAFETY. HOURLY ROUNDING IN PROGRESS, WILL CONTINUE TO MONITOR.
[2020-12-02 08:17] VITALS: BP 134/76
--- NOTE | 2020-12-02 16:06 | NUR ---
CM SPOKE TO THE PT AND HIS SPOUSE TO DISCUSS ANY QUESTIONS OR CONCERNS THAT THEY MAY HAVE FOR TOMORROWS TEAM CONFRENCE MEETING. PT HAS NO QUESTIONS OR CONCERNS. PT SPOUSE INFORMS THAT HER ONLY CONCERN IS THAT THE PT IS ABLE TO [facility], AND THAT HE BE ABLE TO MAKE IT HIS NEUROLOGIST APPT ON 12/04/20. CM AND PHYSICIAN WILL F/U WITH THE PT AND HIS SPOUSE AFTER TOMORROWS MEETING.
[2020-12-02 19:00] VITALS: BP 143/75
[2020-12-03 04:42] LABS: HEMATOCRIT 34.5 % (42.0-52.0); HEMOGLOBIN 11.9 gm/dL (14.0-18.0); MCH 29.6 pg (26.0-34.0); MCHC 34.4 g/dL (28.0-37.0); MCV 86.1 fL (80.0-100.0); MPV 7.3 fl. (7.2-11.1); RBC 4.01 mil/uL (4.50-6.00); RDW-CV 12.4 % (10.5-14.5)
[2020-12-03 05:14] LABS: CALCIUM 8.7 mg/dL (8.5-10.1); POTASSIUM 4.4 mmol/L (3.5-5.1)
--- NOTE | 2020-12-03 05:18 | NUR ---
ASSUMED CARES AT 1920. ALERT AND ORIENTED. PLEASANT. NORCO GIVEN NEEDED FOR HIP PAIN. USED URINAL. SLEPT MOST OF THE NIGHT. CALL LIGHT IN REACH AND BED ALARM ON.
[2020-12-03 08:04] VITALS: BP 128/72
[2020-12-03 19:00] VITALS: BP 137/85
--- NOTE | 2020-12-03 21:00 | NUR ---
RESTING QUIELTY IN BED AND WATCHING TV. VOIDS DARK/YELLOW URINE PER URINAL. DENIES NEED FOR PAIN MEDICATION. CALL LIGHT WITHIN REACH.
--- NOTE | 2020-12-04 05:20 | NUR ---
RESTED QUIETLY. USED URINAL DURING THE NIGHT. HOURLY ROUNDING IN PROGRESS.
[2020-12-04 08:24] VITALS: BP 109/69
--- NOTE | 2020-12-04 18:04 | NUR ---
PT IS UP WITH GAIT BELT AND WALKER. PT COMPLETED ALL THERAPY TODAY. PT HAD BM TODAY.PT DC'ING 12-05-2020 TO HOME. PT IS RESTING WITH CALL LIGHT IN REACH AND FALL PRECAUTIONS IN PLACE.
[2020-12-04 20:00] VITALS: BP 146/82
--- NOTE | 2020-12-04 22:41 | NUR ---
ASSUMED CARE AT 1920. PATIENT RESTING IN BED. TAKES MEDS WHOLE WITH WATER. TURNS SELF. INCISION JONNY. LIDODERM PATCH REMOVED AT HS. VOIDS PER URINAL. NO C/O PAIN. HOURLY ROUNDS CONTINUE. CALL LITE IN REACH. BED ALARM ON.
--- NOTE | 2020-12-05 05:23 | NUR ---
RESTED IN BED ALL NIGHT. VOIDED PER URINAL. NO C/O PAIN. HOURLY ROUNDS CONTINUE. CALL LITE IN REACH. BED ALARM ON.
[2020-12-05 08:00] VITALS: BP 131/78
[2020-12-05 12:51] VITALS: BP 131/78
[2020-12-05 12:52] VITALS: BP 131/78
[2020-12-05 13:14] VITALS: BP 131/78
--- NOTE | 2020-12-05 16:10 | NUR ---
PT HAS MET HIS DISCHARGE GOALS. HOME HEALTH AND PLATFORM WALKER ARRANGED BY ENGINE BUILDUP MECHANIC. PT AND HIS BELONGINGS WERE TRANSPORTED TO THE EXIT VIA WHEELCHAIR. PT ASSISTED INTO INTO VAN, DISCHARGED IN STABLE CONDITION.
--- NOTE | 2020-12-08 15:46 | NUR ---
LATE ENTRY: PT D/C'D HOME WITH [facility]. [facility] TO CONTACT THE PT TO ARRANGE A TIME TO VISIT. [facility] TO DISPENSE WALKER TO PT PER [facility] TRANSITION TEAM. PT'S SPOUSE TO PICK-UP PT'S WALKER WITH PLATFORM ATTACHMENT FROM [facility]. CM WILL REMAIN AVAILABLE TO ASSIST AND FOLLOW NEEDED. [facility] PHONE: [phone] FAX: [phone]
== END 2020-12-05 16:32 | disposition home health service (06) | DRG 536 ==
LOC: M.REH 10:00
PROVIDERS: Internal Medicine; ADMIT Physical Medicine & Rehabilitation; ATTEND Physical Medicine & Rehabilitation
DX: S72.032A Displaced midcervical fracture of left femur, initial encounter for closed fracture (principal); I69.354 Hemiplegia and hemiparesis following cerebral infarction affecting left non-dominant side; N18.2 Chronic kidney disease, stage 2 (mild); M62.838 Other muscle spasm; I12.9 Hypertensive chronic kidney disease with stage 1 through stage 4 chronic kidney disease, or unspecified chronic kidney disease; F32.9 Major depressive disorder, single episode, unspecified; W18.39XA Other fall on same level, initial encounter; I25.10 Atherosclerotic heart disease of native coronary artery without angina pectoris; M1A.9XX0 Chronic gout, unspecified, without tophus (tophi); Z79.82 Long term (current) use of aspirin; Z79.899 Other long term (current) drug therapy; Y93.89 Activity, other specified; Y92.89 Other specified places as the place of occurrence of the external cause; Y99.8 Other external cause status

== ENCOUNTER → 2021-01-30 | Outpatient (CLI) | payer OTHER | LOC: M.RAD 15:45 | PROVIDERS: ATTEND Orthopaedic Surgery | DX: M25.552 Pain in left hip (principal); Z96.642 Presence of left artificial hip joint ==

== ENCOUNTER 2021-03-16 11:57 | Emergency (ER) | payer OTHER ==
[~2021-03-16] VITALS: Ht 182.9 cm; Wt 108.9 kg
[2021-03-16] MEDS ORDERED: ELIQUIS2.5 MG PO (13:02)
[2021-03-16] MEDS ORDERED: TIZANIDINE HCL4 M1 PO (13:02)
[2021-03-16] MEDS ORDERED: HYDROCODON-ACE1 EAC7 PO (17:31)
[2021-03-16 17:35] VITALS: BP 143/93
== END 2021-03-16 17:35 | disposition home or self-care (01) ==
LOC: M.ERS 11:57
DX: S70.02XA Contusion of left hip, initial encounter (principal); S20.212A Contusion of left front wall of thorax, initial encounter; S50.02XA Contusion of left elbow, initial encounter; M25.512 Pain in left shoulder; I10 Essential (primary) hypertension; M54.50 Low back pain, unspecified; Z96.642 Presence of left artificial hip joint; Z86.73 Personal history of transient ischemic attack (TIA), and cerebral infarction without residual deficits; Z79.899 Other long term (current) drug therapy; W10.8XXA Fall (on) (from) other stairs and steps, initial encounter; Y93.89 Activity, other specified; Y92.89 Other specified places as the place of occurrence of the external cause; Y99.8 Other external cause status